=== PATIENT | male | born 1995 | race African-American/Black ===

== ENCOUNTER 2020-09-06 10:58 | Emergency (ER) | payer OTHER ==
[~2020-09-06] VITALS: Ht 177.8 cm; Wt 86.2 kg
[~2020-09-06 10:58] MED LIST: NOHOMEMEDICATIONS; PHENERGAN 25 MG25 M1 PO; PHENERGAN VC-C120 ML PO
[2020-09-06 11:22] LABS: URINE BILIRUBIN NEGATIVE (Negative); URINE BLOOD NEGATIVE (Negative); URINE CLARITY CLEAR; URINE COLOR YELLOW; URINE GLUCOSE-RANDOM* NEGATIVE (Negative); URINE KETONES NEGATIVE (Negative); URINE LEUKOCYTES-REFLEX NEGATIVE (Negative); URINE NITRITE-REFLEX NEGATIVE (Negative); URINE PROTEIN (DIPSTICK) NEGATIVE (Negative); URINE UROBILINOGEN 0.2 E.U./dl (0.2-1.0)
[2020-09-06 11:48] LABS: ABSOLUTE NEUTROPHILS 2.2 thou/uL (1.4-8.2); BASOPHILS 1.2 % (0.0-2.0); EOSINOPHILS 3.8 % (0.0-3.0); HEMATOCRIT 43.3 % (42.0-52.0); HEMOGLOBIN 14.2 gm/dL (14.0-18.0); LYMPHOCYTES 37.3 % (24.0-44.0); MCH 27.9 pg (26.0-34.0); MCHC 32.8 g/dL (28.0-37.0); MCV 85.2 fL (80.0-100.0); MONOCYTES 12.6 % (1.0-8.0); PLATELET COUNT 251 thou/uL (150-400); POLYS 45.1 % (36.0-66.0); RBC 5.08 mil/uL (4.50-6.00); RDW 14.6 % (10.5-14.5); WBC 4.9 thou/uL (4.0-11.0)
[2020-09-06 11:52] LABS: CALCIUM 9.9 mg/dL (8.5-10.1); CREATININE 1.2 mg/dL (0.7-1.3)
[2020-09-06 11:58] LABS: ALBUMIN 4.7 g/dL (3.4-5.0); DIRECT BILIRUBIN 0.1 mg/dL (<0.1-0.2); TOTAL BILIRUBIN 0.5 mg/dL (0.2-1.0); TOTAL PROTEIN 7.9 g/dL (6.4-8.2)
[2020-09-06] MEDS ORDERED: HYDROCODON-ACE1 EAC7 PO (13:15)
[2020-09-06 14:06] VITALS: BP 129/69
== END 2020-09-06 14:20 | disposition home or self-care (01) ==
LOC: ER 10:58
PROVIDERS: Nurse Practitioner
DX: K40.90 Unilateral inguinal hernia, without obstruction or gangrene, not specified as recurrent (principal)